=== PATIENT | female | born 1925 | race Caucasian/White ===

== ENCOUNTER 2016-11-26 10:52 | Emergency (ER) | payer OTHER ==
[~2016-11-26] VITALS: Ht 152.4 cm; Wt 75.0 kg
[~2016-11-26 10:52] MED LIST: ACET325T96 PO; AMIO200T4 PO; CALC500C70 PO; GABA-113 PO; HYDR25TA4 PO; LEVO75TA5 PO; LOSA50TA6 PO; MULT-513 PO; PRLSR20 PO; WARF1TAB6 PO
[2016-11-26 11:04] VITALS: TEMP 36.8; Ht 152.4 cm; Wt 75.0 kg
--- NOTE | 2016-11-26 11:46 | DIAGNOSTIC IMAGING REPORT ---
CT OF THE HEAD WITHOUT CONTRAST CLINICAL HISTORY: Fall. COMPARISON STUDY: Head CT March 29, 2016. CT DOSE: 638.56 mGycm TECHNIQUE: Helical axial images of the head were obtained without IV contrast. Automated exposure control was utilized for the study. A dose lowering technique was utilized adhering to the principles of ALARA. FINDINGS: No acute intracranial hemorrhage, midline shift or mass effect is present. Ventricular system is normal for age. Basilar cisterns are patent. There are no extra-axial collections. Alvarez-white differentiation is maintained. There is a small posterior scalp contusion. There is no calvarial fracture. Visualized portions of the sinuses and mastoid air cells are clear. IMPRESSION: 1. No acute intracranial findings. 2. Posterior scalp contusion. No calvarial fracture. Electronically signed by: Jesus Pratt M.D. 11/26/2016 11:44 AM Dictated Date/Time: 11/26/2016 11:41 AM
[2016-11-26] MEDS ORDERED: LPR25 PO (12:27)
[2016-11-26] MEDS ORDERED: ACET-1256 PO (12:27)
[2016-11-26] MEDS ORDERED: CHOL1CAP PO (12:27)
[2016-11-26] MEDS ORDERED: RQP25 PO (12:27)
[2016-11-26] MEDS ORDERED: CRD200 PO (12:27)
[2016-11-26] MEDS ORDERED: CMD/1 PO (12:27)
--- NOTE | 2016-11-26 12:27 | EMERGENCY ROOM VISIT NOTE ---
History Report prepared by Alyshaibmorelia: Brittni Day Under the Supervision of: Dr. Brett Dickson D.O. First contact with patient: 11:11 Chief Complaint: FALL Stated Complaint: FELL AND HIT HEAD/LEFT SIDE - ON FLOOR History of Present Illness The patient is a 89 year old female who presents to the Emergency Room with complaints of a fall that occurred around 1000 this morning. She reports she lost her balance while turning around and fell, hitting her head and landing on her left side. She denies any loss of consciousness. She currently complains of pain in her head and along "the entire left side" of her body, rating her discomfort as a 5/10. She has minor neck pain. She denies any back pain or pain or swelling in her legs. The patient takes daily Coumadin for a history of atrial fibrillation. Source of History: patient Onset: 1000 this morning Position: other (global) Quality: other (fall) Timing: resolved Associated Symptoms: + headache, + neck pain, No LOC, No back pain Review of Systems See HPI for pertinent positives & negatives. A total of 10 systems reviewed and were otherwise negative. Past Medical & Surgical Medical Problems: (1) A-fib (2) Diastolic dysfunction (3) GERD (gastroesophageal reflux disease) (4) H/O echocardiogram (5) HTN (hypertension) (6) Mitral regurgitation (7) Moderate tricuspid regurgitation (8) Osteoarthritis (9) Tachy-martin syndrome (10) Vitamin D deficiency Surgical Problems: (1) S/P hysterectomy (2) S/P total knee replacement Family History Hypertension Social History Smoking Status: Never Smoker Alcohol Use: none Drug Use: none Marital Status: Housing Status: lives alone Occupation Status: employed Current/Historical Medications Scheduled Amiodarone Hcl (Cordarone), 200 MG PO BID Calcium/Vitamin D (Os-Ahsan 500 Plus D), 1 TAB PO BID Gabapentin (Neurontin), 300 MG PO BID Hydrochlorothiazide (Hctz), 1 TAB PO DAILY Levothyroxine Sodium (Levothyroxine Sodium), 1 TAB PO DAILY Losartan Potassium (Cozaar), 50 MG PO DAILY Multivitamins/Minerals (Mvi With Minerals), 1 TAB PO DAILY Omeprazole (Prilosec), 20 MG PO BID Warfarin Sod (Jantoven), 1 MG PO SUN,MON,MON,,, Scheduled PRN Acetaminophen Tab (Tylenol), 650 MG PO BID PRN for Pain Allergies Coded Allergies: BEE STING (Unverified Allergy, Unknown, swelling rash, 11/26/16) Physical Exam Vital Signs Date Time Temp Pulse Resp B/P (MAP) Pulse Ox O2 Delivery O2 Flow Rate FiO2 11/26/16 11:04 36.8 66 18 180/88 98 Room Air Physical Exam CONSTITUTIONAL/VITAL SIGNS: Reviewed / noted above. GENERAL: Non-toxic in appearance. INTEGUMENTARY: Warm, dry, and [place]. HEAD: Normocephalic. Hematoma to posterior apex of head. EYES: without scleral icterus or trauma. ENT/OROPHARYNX: clear and moist. LYMPHADENOPATHY/NECK: Is supple without lymphadenopathy or meningismus. RESPIRATORY: Lungs clear and equal. CARDIOVASCULAR: Regular rate and rhythm. GI/ABDOMEN: Soft and nontender. No organomegaly or pulsatile mass. No rebound or guarding. Normal bowel sounds. EXTREMITIES: Warm and well perfused. BACK: No CVA tenderness. Mild tenderness to left buttock area. NEUROLOGICAL: Intact without focal deficits. PSYCHIATRIC: normal affect. MUSCULOSKELETAL: Normally developed with good muscle tone. Medical Decision & Procedures ER Provider Diagnostic Interpretation: Radiology results as stated below per my review and radiologist interpretation: CT OF THE HEAD WITHOUT CONTRAST CLINICAL HISTORY: Fall. COMPARISON STUDY: Head CT March 29, 2016. CT DOSE: 638.56 mGycm TECHNIQUE: Helical axial images of the head were obtained without IV contrast. Automated exposure control was utilized for the study. A dose lowering technique was utilized adhering to the principles of ALARA. FINDINGS: No acute intracranial hemorrhage, midline shift or mass effect is present. Ventricular system is normal for age. Basilar cisterns are patent. There are no extra-axial collections. Alvarez-white differentiation is maintained. There is a small posterior scalp contusion. There is no calvarial fracture. Visualized portions of the sinuses and mastoid air cells are clear. IMPRESSION: 1. No acute intracranial findings. 2. Posterior scalp contusion. No calvarial fracture. Electronically signed by: Jesus Pratt M.D. 11/26/2016 11:44 AM ED Course 1112: Previous medical records were reviewed. The patient was evaluated in room C4. A complete history and physical examination was performed. 1220: I reevaluated the patient. She is feeling well and resting comfortably. I discussed her results and discharge instructions and she verbalized complete understanding and agreement. Medical Decision Differential includes close head injury, intracranial bleed, facial trauma, cervical spine trauma, chest and thoracic trauma, abdominal and intra-abdominal trauma, spine neurologic trauma, extremity trauma. This is an 89-year-old female who presents to the ED with a chief complaint of a fall. The patient is on Coumadin. She states that she was turning lost her balance and fell hitting the back of her head. She also hit her buttocks. The patient complains of discomfort in the left buttock area as well as the posterior head area. Exam reveals a hematoma to the posterior aspect of the head. It is rather small. There is no obvious visible injury to the left hip or buttock area but there is some mild tenderness on exam. A CT scan of the brain did not show acute disease. Exam did not reveal any obvious bony fractures. The patient was told the results and felt stable for discharge. Medication Reconcilliation Current Medication List: was personally reviewed by me Blood Pressure Screening Patient's blood pressure: Elevated blood pressure Blood pressure disposition: Referred to PCP Impression Primary Impression: Fall Additional Impression: Contusion of multiple sites Scribe Attestation The scribe's documentation has been prepared under my direction and personally reviewed by me in its entirety. I confirm that the note above accurately reflects all work, treatment, procedures, and medical decision making performed by me. Departure Information Dispostion Home / Self-Care Referrals Avi Biggs MD (PCP) Patient Instructions My [facility] Additional Instructions Follow-up with your doctor for further care and evaluation in 1-2 days as needed. Return to the emergency department for worsening or new symptoms or any concerns. You have been examined and treated today on an emergency basis only. This is not a substitute for, or an effort to provide, complete comprehensive medical care. It is impossible to recognize and treat all injuries or illnesses in a single emergency department visit. It is therefore important that you follow up closely with your doctor. Call as soon as possible for an appointment. Problem Qualifiers
[2016-11-26 12:40] VITALS: BP 179/74; PULSE 66; O2SAT 98
== END 2016-11-26 12:41 | disposition home or self-care (01) ==
LOC: C.EDB 10:55 → C.EDC 12:41
DX: S00.93XA Contusion of unspecified part of head, initial encounter (principal); S30.0XXA Contusion of lower back and pelvis, initial encounter; W01.0XXA Fall on same level from slipping, tripping and stumbling without subsequent striking against object, initial encounter; I48.91 Unspecified atrial fibrillation; K21.9 Gastro-esophageal reflux disease without esophagitis; I10 Essential (primary) hypertension; I34.0 Nonrheumatic mitral (valve) insufficiency; I07.1 Rheumatic tricuspid insufficiency; M19.90 Unspecified osteoarthritis, unspecified site; I49.5 Sick sinus syndrome; E55.9 Vitamin D deficiency, unspecified; Z79.01 Long term (current) use of anticoagulants; Z90.710 Acquired absence of both cervix and uterus; Z96.659 Presence of unspecified artificial knee joint; Z82.49 Family history of ischemic heart disease and other diseases of the circulatory system